=== PATIENT | female | born 1990 | race Caucasian/White ===

== ENCOUNTER 2020-08-29 08:45 | Emergency (ER) | payer BC ==
[~2020-08-29] VITALS: Ht 160 cm; Wt 72.6 kg
[2020-08-29 08:49] VITALS: BP_SYST 127
--- NOTE | 2020-08-29 08:53 | NUR ---
Patient to ER bed 8 to gown for evaluation. Side rails up. Report given to BARBIE Miranda.
--- NOTE | 2020-08-29 08:55 | NUR ---
pt. came in with c/o vaginal odor and itching, denies pain, burning or difficulty voiding. noticed first symptoms this morning, does state has had hx. of yeast infections and PH balance problems since her teenage years.
--- NOTE | 2020-08-29 09:00 | NUR ---
ER at bedside examining patient.
[2020-08-29 09:18] LABS: BILIRUBIN,URINE NEGATIVE (NEGATIVE); BLOOD, URINE NEGATIVE (NEGATIVE); COLOR,URINE YELLOW (YELLOW); GLUCOSE,URINE NEGATIVE (NEGATIVE); KETONES,URINE NEGATIVE (NEGATIVE); LEUKOCYTE ESTERASE ,URINE TRACE (NEGATIVE); NITRITE, URINE NEGATIVE (NEGATIVE); PROTEIN URINE NEGATIVE (NEGATIVE); UROBILINOGEN,URINE 0.2 (0.2-1.0)
[2020-08-29 09:24] LABS: CLARITY/URINE HAZY (CLEAR)
[2020-08-29 09:25] LABS: BACTERIA,URINE FEW /HPF (None Seen); MUCUS,URINE 1+ /LPF (None Seen); RBC,URINE NONE SEEN /HPF (0-3); WBC,URINE 0-3 /HPF (0-3)
[2020-08-29] MEDS ORDERED: METR500T PO (09:26)
[2020-08-29] MEDS ORDERED: NITR-85 PO (09:26)
--- NOTE | 2020-08-29 09:34 | NUR ---
Patient given written and verbal discharge instructions and verbalizes understanding. Dr. Elizalde discussed with patient the results and treatment provided. Patient in stable condition. ID arm band removed. Rx of Flagyl and Macroibid given. Patient educated on pain management and to follow up with PMD. Pain Scale 0/10. Opportunity for questions provided and answered. Medication side effect fact sheet provided.
[2020-08-29 09:35] VITALS: BP_SYST 127
[2020-08-30 21:06] LABS: CHLAMYDIA TRACHOMATIS NAA Negative (Negative); NEISSERIA GONORRHOEAE NAA Negative (Negative)
== END 2020-08-29 09:34 | disposition home or self-care (01) ==
LOC: SED 08:45
DX: N76.0 Acute vaginitis (principal); Z79.899 Other long term (current) drug therapy; Z88.5 Allergy status to narcotic agent
CPT/HCPCS: 81000; 87491; 87591; 99283

== ENCOUNTER 2020-11-09 16:45 | Emergency (ER) | payer BC ==
[~2020-11-09] VITALS: Ht 160 cm; Wt 72.6 kg
[2020-11-09 16:45] VITALS: BP_SYST 119
[~2020-11-09 16:45] MED LIST: METR500T PO; NITR-85 PO
[2020-11-09 18:27] LABS: BILIRUBIN,URINE NEGATIVE (NEGATIVE); BLOOD, URINE NEGATIVE (NEGATIVE); COLOR,URINE YELLOW (YELLOW); GLUCOSE,URINE NEGATIVE (NEGATIVE); KETONES,URINE NEGATIVE (NEGATIVE); LEUKOCYTE ESTERASE ,URINE NEGATIVE (NEGATIVE); NITRITE, URINE NEGATIVE (NEGATIVE); PROTEIN URINE NEGATIVE (NEGATIVE); UROBILINOGEN,URINE 0.2 (0.2-1.0)
[2020-11-09 18:28] LABS: CLARITY/URINE HAZY (CLEAR)
[2020-11-09] MEDS ORDERED: NITR-85 PO (18:29)
[2020-11-09] MEDS ORDERED: PHEN-726 PO (18:29)
[2020-11-09] MEDS ORDERED: METR500T PO (18:39)
== END 2020-11-09 18:49 | disposition home or self-care (01) ==
LOC: SED 16:45
DX: N76.0 Acute vaginitis (principal); Z88.5 Allergy status to narcotic agent; Z79.899 Other long term (current) drug therapy
CPT/HCPCS: 81003; 81025; 99283

== ENCOUNTER 2020-11-26 16:23 | Emergency (ER) | payer BC ==
[~2020-11-26] VITALS: Ht 165.1 cm; Wt 74.8 kg
[2020-11-26 16:30] VITALS: BP_SYST 126
--- NOTE | 2020-11-26 16:30 | NUR ---
Triaged and placed in waiting room
[2020-11-26 17:09] VITALS: BP_SYST 126
[2020-11-26 17:32] LABS: BILIRUBIN,URINE NEGATIVE (NEGATIVE); BLOOD, URINE NEGATIVE (NEGATIVE); COLOR,URINE YELLOW (YELLOW); GLUCOSE,URINE NEGATIVE (NEGATIVE); KETONES,URINE NEGATIVE (NEGATIVE); LEUKOCYTE ESTERASE ,URINE 1+ (NEGATIVE); NITRITE, URINE NEGATIVE (NEGATIVE); PH,URINE 7.5 (5.0-8.0); PROTEIN URINE NEGATIVE (NEGATIVE)
[2020-11-26 17:35] LABS: CLARITY/URINE HAZY (CLEAR)
[2020-11-26 18:02] LABS: BACTERIA,URINE MODERATE /HPF (None Seen); CALCIUM OXALATE CRYSTALS,UR None Seen /HPF (None Seen); CALCIUM PHOSPHATE CRYSTALS,UR None Seen /HPF (None Seen); OTHER CRYSTALS,URINE None Seen /HPF (None Seen); RBC,URINE 0-3 /HPF (0-3); TRICHOMONAS,URINE None Seen /HPF (None Seen); TRIPLE PHOSPHATE CRYSTAL,UR None Seen /HPF (None Seen); URIC ACID CRYSTALS,URINE None Seen /HPF (None Seen); URINE AMORPHOUS URATE None Seen /HPF (None Seen); YEAST,URINE None Seen /HPF (None Seen)
[2020-11-26 18:03] LABS: COARSE GRANULAR CASTS,URINE None Seen /LPF (None Seen); FINE GRANULAR CASTS,URINE None Seen /LPF (None Seen); HYALINE CASTS, URINE None Seen /LPF (None Seen); MUCUS,URINE None Seen /LPF (None Seen); OTHER CASTS, URINE None Seen /LPF (None Seen); URINE AMORPHOUS PHOSPHATES None Seen /HPF (None Seen); WAXY CASTS,URINE None Seen /LPF (None Seen)
--- NOTE | 2020-11-26 20:46 | NUR ---
Patient left without being seen.
== END 2020-11-26 20:46 | disposition left against medical advice (07) ==
LOC: SED 16:23
DX: N89.8 Other specified noninflammatory disorders of vagina (principal); Z53.21 Procedure and treatment not carried out due to patient leaving prior to being seen by health care provider
CPT/HCPCS: 81000; 87086

== ENCOUNTER 2020-12-09 08:55 | Emergency (ER) | payer BC ==
[~2020-12-09] VITALS: Ht 160 cm; Wt 72.6 kg
[2020-12-09 09:06] VITALS: BP_SYST 118
--- NOTE | 2020-12-09 09:08 | NUR ---
Patient to ER bed 3 to gown for evaluation. Side rails up. Report given to CHET VALENTIN.
--- NOTE | 2020-12-09 09:15 | NUR ---
pt arrives w/ pelvic pain x 2 days, "pt states that she feels as if a piece of vaginal skin and her vagina is going to fall off".
--- NOTE | 2020-12-09 09:20 | NUR ---
ER at bedside examining patient.
[2020-12-09] MEDS ORDERED: metroNIDAZOLE 500 MG TABLET PO ONE (09:30)
[2020-12-09 09:51] LABS: BASOPHILS % (AUTO) 0.3 % (0.0-2.0); EOSINOPHILS # (AUTO) 0.1 K/uL (0.0-0.4); EOSINOPHILS % (AUTO) 1.1 % (0.0-4.0); HEMATOCRIT 35.9 % (36-48); HEMOGLOBIN 12.2 g/dL (12.0-16.0); LYMPHOCYTES # (AUTO) 1.4 K/uL (1.0-5.5); LYMPHOCYTES % (AUTO) 24.5 % (20.5-51.5); MEAN CORPUSCULAR HEMOGLOBIN 27 pg (27-31); MEAN CORPUSCULAR HGB CONC 34 % (32-36); MEAN CORPUSCULAR VOLUME 80 fL (79.0-98.0); MONOCYTES # (AUTO) 0.5 K/uL (0.0-1.0); MONOCYTES % (AUTO) 8.3 % (1.7-9.3); NEUTROPHILS # (AUTO) 3.8 K/uL (1.8-7.7); NEUTROPHILS % (AUTO) 65.8 % (40.0-70.0); PLATELET COUNT (AUTO) 362 K/uL (130-430); RED BLOOD CELL COUNT(AUTO) 4.47 MIL/uL (4.2-6.2); RED CELL DISTRIBUTION WIDTH 14.8 % (9.0-15.0); WHITE BLOOD COUNT (AUTO) 5.8 K/uL (4.8-10.8)
[2020-12-09 10:15] LABS: BILIRUBIN,URINE NEGATIVE (NEGATIVE); BLOOD, URINE 3+ (NEGATIVE); CLARITY/URINE TURBID (CLEAR); COLOR,URINE YELLOW (YELLOW); GLUCOSE,URINE NEGATIVE (NEGATIVE); KETONES,URINE NEGATIVE (NEGATIVE); LEUKOCYTE ESTERASE ,URINE 3+ (NEGATIVE); NITRITE, URINE NEGATIVE (NEGATIVE); PROTEIN URINE NEGATIVE (NEGATIVE); UROBILINOGEN,URINE 0.2 (0.2-1.0)
[2020-12-09 10:38] LABS: BACTERIA,URINE MODERATE /HPF (None Seen); WBC,URINE 20-50 /HPF (0-3)
--- NOTE | 2020-12-09 11:00 | NUR ---
Patient transported to radiology via WC, accompanied by US tech.
[2020-12-09 11:02] LABS: ERYTHROCYTE SEDIMENTATION RATE 14 MM/HR (0-20)
[2020-12-09] MEDS ORDERED: METR500T PO (11:48)
[2020-12-09] MEDS ORDERED: SULF1TAB48 PO (11:48)
[2020-12-09 11:59] VITALS: BP_SYST 118
--- NOTE | 2020-12-09 12:00 | NUR ---
Patient given written and verbal discharge instructions and verbalizes understanding. ER MD discussed with patient the results and treatment provided. Patient in stable condition. ID arm band removed. Rx of Flagyl given. Patient educated on pain management and to follow up with PMD. Pain Scale 3/10. Opportunity for questions provided and answered. Medication side effect fact sheet provided.
== END 2020-12-09 11:59 | disposition home or self-care (01) ==
LOC: SED 08:55
DX: N39.0 Urinary tract infection, site not specified (principal); R10.2 Pelvic and perineal pain; Z88.5 Allergy status to narcotic agent; Z79.899 Other long term (current) drug therapy
CPT/HCPCS: 36415; 76856-TC; 81000; 85025; 85651-TC; 86140; 87086; 99284

== ENCOUNTER 2021-02-06 23:11 | Emergency (ER) | payer BC ==
[~2021-02-06] VITALS: Ht 160 cm; Wt 73.9 kg
[~2021-02-06 23:11] MED LIST changes: +SULF1TAB48 PO
[2021-02-06 23:57] VITALS: BP_SYST 121
--- NOTE | 2021-02-07 | NUR ---
Patient triaged and placed in waiting room. VSS and patient appears in no acute distress at this time. Accompanied by SELF, awaiting available bed, and MD notified of need for MSE.
[2021-02-07 00:22] LABS: BILIRUBIN,URINE NEGATIVE (NEGATIVE); CLARITY/URINE CLOUDY (CLEAR); COLOR,URINE YELLOW (YELLOW); GLUCOSE,URINE NEGATIVE (NEGATIVE); KETONES,URINE TRACE (NEGATIVE); LEUKOCYTE ESTERASE ,URINE 1+ (NEGATIVE); NITRITE, URINE NEGATIVE (NEGATIVE); PROTEIN URINE NEGATIVE (NEGATIVE); UROBILINOGEN,URINE 0.2 (0.2-1.0)
[2021-02-07 00:23] LABS: BLOOD, URINE TRACE (NEGATIVE)
[2021-02-07 00:40] LABS: BACTERIA,URINE MODERATE /HPF (None Seen); WBC,URINE 20-50 /HPF (0-3)
--- NOTE | 2021-02-07 01:12 | NUR ---
Patient ambulatory to bed hallway for evaluation
--- NOTE | 2021-02-07 01:15 | NUR ---
DR. CRAWFORD AT [facility] TO EVALUATE PATIENT.
[2021-02-07] MEDS ORDERED: PHENAZOPYRIDINE HCL 100 MG TABLET PO ONE (01:45)
[2021-02-07] MEDS ORDERED: NITROFURANTOIN MONOHYD/M-CRYST 100 MG CAPSULE (MacroBID) PO ONE (01:45)
[2021-02-07] MEDS ORDERED: NITR-85 PO (01:47)
[2021-02-07] MEDS ORDERED: PHEN-890 PO (01:47)
[2021-02-07 02:04] VITALS: BP_SYST 121
--- NOTE | 2021-02-07 02:04 | NUR ---
Patient given written and verbal discharge instructions and verbalizes understanding. DR.PEEK SHERRY SALAS discussed with patient the results and treatment provided. Patient in stable condition. ID arm band removed. Rx of MACROBID, PYRIDIUM given. Patient educated on pain management and to follow up with PMD. Pain Scale 0/10. Opportunity for questions provided and answered. Medication side effect fact sheet provided.
== END 2021-02-07 02:04 | disposition home or self-care (01) ==
LOC: SED 23:11
DX: N39.0 Urinary tract infection, site not specified (principal)
CPT/HCPCS: 81000; 81025; 87086; 99283

== ENCOUNTER 2021-07-24 17:03 | Emergency (ER) | payer BC ==
[~2021-07-24] VITALS: Ht 160 cm; Wt 74.4 kg
[~2021-07-24 17:03] MED LIST changes: +PHEN-890 PO
[2021-07-24 17:20] VITALS: BP_SYST 133
[2021-07-24] MEDS ORDERED: NITR-85 PO (17:22)
[2021-07-24] MEDS ORDERED: GYNECR VG (17:22)
[2021-07-24 17:38] VITALS: BP_SYST 128
== END 2021-07-24 17:38 | disposition home or self-care (01) ==
LOC: SED 17:03
DX: N39.0 Urinary tract infection, site not specified (principal); Z88.5 Allergy status to narcotic agent; Z79.899 Other long term (current) drug therapy
CPT/HCPCS: 99283

== ENCOUNTER 2021-09-04 17:36 | Emergency (ER) | payer BC ==
[~2021-09-04] VITALS: Ht 160 cm; Wt 74.4 kg
[~2021-09-04 17:36] MED LIST changes: +GYNECR VG
[2021-09-04 17:57] VITALS: BP_SYST 119
[2021-09-04] MEDS ORDERED: KETOROLAC TROMETHAMINE 60 MG/2 ML VIAL IM ONE (19:00)
[2021-09-04 19:16] LABS: BASOPHILS % (AUTO) 0.4 % (0.0-2.0); EOSINOPHILS # (AUTO) 0.1 K/uL (0.0-0.4); HEMATOCRIT 35.2 % (36-48); HEMOGLOBIN 11.6 g/dL (12.0-16.0); LYMPHOCYTES # (AUTO) 2.6 K/uL (1.0-5.5); LYMPHOCYTES % (AUTO) 33.1 % (20.5-51.5); MEAN CORPUSCULAR HEMOGLOBIN 27 pg (27-31); MEAN CORPUSCULAR HGB CONC 33 % (32-36); MEAN CORPUSCULAR VOLUME 81 fL (79.0-98.0); MONOCYTES # (AUTO) 1.1 K/uL (0.0-1.0); MONOCYTES % (AUTO) 14.4 % (1.7-9.3); NEUTROPHILS % (AUTO) 51.1 % (40.0-70.0); PLATELET COUNT (AUTO) 398 K/uL (130-430); RED BLOOD CELL COUNT(AUTO) 4.34 MIL/uL (4.2-6.2); RED CELL DISTRIBUTION WIDTH 15.8 % (9.0-15.0); WHITE BLOOD COUNT (AUTO) 7.9 K/uL (4.8-10.8)
[2021-09-04 19:47] LABS: CALCIUM 8.1 mg/dL (8.4-11.0); CREATININE 0.78 mg/dL (0.55-1.30); POTASSIUM 4.7 mmol/L (3.5-5.1)
[2021-09-04 19:51] LABS: C-REACTIVE PROTEIN QUANT 0.2 mg/dL (0-0.5)
[2021-09-04 20:21] LABS: TOTAL BILIRUBIN 0.2 mg/dL (0.0-1.0)
[2021-09-04] MEDS ORDERED: IBUP-1969 PO (20:47)
[2021-09-04] MEDS ORDERED: HYDR-3917 PO (20:47)
[2021-09-04 21:29] VITALS: BP_SYST 119
== END 2021-09-04 21:00 | disposition home or self-care (01) ==
LOC: SED 17:36
DX: K80.20 Calculus of gallbladder without cholecystitis without obstruction (principal); K80.50 Calculus of bile duct without cholangitis or cholecystitis without obstruction; Z88.5 Allergy status to narcotic agent; Z79.899 Other long term (current) drug therapy
CPT/HCPCS: 36415; 74176; 76376; 80053; 81025; 82150; 83690; 84703; 85025; 86140; 99284; J1885

== ENCOUNTER 2021-09-06 11:27 | Emergency (ER) | payer BC ==
[~2021-09-06] VITALS: Ht 160 cm; Wt 74.4 kg
[~2021-09-06 11:27] MED LIST changes: +HYDR-3917 PO; +IBUP-1969 PO
[2021-09-06 11:43] VITALS: BP_SYST 124
[2021-09-06] MEDS ORDERED: ONDANSETRON HCL 4 MG/2 ML VIAL IVP ONE (12:00)
[2021-09-06] MEDS ORDERED: NACL 0.9% 1,000 ML IV ONE (12:00)
[2021-09-06 12:14] LABS: BILIRUBIN,URINE NEGATIVE (NEGATIVE); BLOOD, URINE NEGATIVE (NEGATIVE); CLARITY/URINE CLEAR (CLEAR); COLOR,URINE YELLOW (YELLOW); GLUCOSE,URINE NEGATIVE (NEGATIVE); KETONES,URINE NEGATIVE (NEGATIVE); LEUKOCYTE ESTERASE ,URINE NEGATIVE (NEGATIVE); NITRITE, URINE NEGATIVE (NEGATIVE); PH,URINE 6.5 (5.0-8.0); PROTEIN URINE NEGATIVE (NEGATIVE); UROBILINOGEN,URINE 0.2 (0.2-1.0)
[2021-09-06 12:17] LABS: BASOPHILS % (AUTO) 0.3 % (0.0-2.0); EOSINOPHILS # (AUTO) 0.1 K/uL (0.0-0.4); EOSINOPHILS % (AUTO) 1.2 % (0.0-4.0); HEMATOCRIT 34.3 % (36-48); HEMOGLOBIN 11.5 g/dL (12.0-16.0); LYMPHOCYTES # (AUTO) 1.8 K/uL (1.0-5.5); LYMPHOCYTES % (AUTO) 32.4 % (20.5-51.5); MEAN CORPUSCULAR HEMOGLOBIN 27 pg (27-31); MEAN CORPUSCULAR HGB CONC 34 % (32-36); MEAN CORPUSCULAR VOLUME 81 fL (79.0-98.0); MONOCYTES # (AUTO) 0.7 K/uL (0.0-1.0); NEUTROPHILS # (AUTO) 2.9 K/uL (1.8-7.7); NEUTROPHILS % (AUTO) 53.1 % (40.0-70.0); PLATELET COUNT (AUTO) 394 K/uL (130-430); RED BLOOD CELL COUNT(AUTO) 4.26 MIL/uL (4.2-6.2); RED CELL DISTRIBUTION WIDTH 15.6 % (9.0-15.0); WHITE BLOOD COUNT (AUTO) 5.5 K/uL (4.8-10.8)
[2021-09-06 12:20] LABS: CALCIUM 7.9 mg/dL (8.4-11.0); CREATININE 0.77 mg/dL (0.55-1.30); POTASSIUM 4.6 mmol/L (3.5-5.1)
[2021-09-06 12:26] LABS: ALBUMIN 2.9 g/dL (3.4-4.8); TOTAL BILIRUBIN 0.3 mg/dL (0.0-1.0)
[2021-09-06] MEDS ORDERED: MORPHINE 4 MG INJ. 4 MG/ML VIAL IVP ONE (15:00)
[2021-09-06] MEDS ORDERED: ONDANSETRON HCL 4 MG/2 ML VIAL ONE (15:13)
[2021-09-06] MEDS: MORPHINE 4 MG INJ. 4 MG/ML VIAL IVP PRN ×2 (16:33→18:33)
[2021-09-06] MEDS ORDERED: KETOROLAC TROMETHAMINE 30 MG VIAL IVP ONE (17:45)
[2021-09-06 21:10] VITALS: BP_SYST 126
== END 2021-09-06 21:07 | disposition short-term general hospital (02) ==
LOC: SED 11:27
DX: K80.20 Calculus of gallbladder without cholecystitis without obstruction (principal); Z88.5 Allergy status to narcotic agent; Z20.822 Contact with and (suspected) exposure to COVID-19
CPT/HCPCS: 36415; 76700; 80053; 81003; 81025; 83690; 85025; 86886; 86900; 86901; 87426; 96361; 96374; 96375; 96376; 99285; J1885; J2270; J2405; J7030

== ENCOUNTER 2022-06-08 23:23 | Emergency (ER) | payer BC ==
[~2022-06-08] VITALS: Ht 160 cm; Wt 77.1 kg
[2022-06-09 00:23] VITALS: BP_SYST 144
--- NOTE | 2022-06-09 00:25 | NUR ---
DR. STEARNS WITH PATIENT IN TRIAGE FOR MSE.
--- NOTE | 2022-06-09 00:29 | NUR ---
Patient triaged and placed in waiting room. VSS and patient appears in no acute distress at this time. Accompanied by SELF, awaiting available bed, and MD notified of need for MSE.
--- NOTE | 2022-06-09 00:30 | NUR ---
PT FROM HOME WITH C/O VAGINAL FOUL ODOR, ITCHING AND YELLOW DISCHARGE X 3DAYS. PT DENIES ANY PAIN AND DISCOMFORT. VSS.
[2022-06-09 00:46] LABS: BILIRUBIN,URINE NEGATIVE (NEGATIVE); BLOOD, URINE NEGATIVE (NEGATIVE); CLARITY/URINE SL CLOUDY (CLEAR); COLOR,URINE YELLOW (YELLOW); GLUCOSE,URINE NEGATIVE (NEGATIVE); KETONES,URINE NEGATIVE (NEGATIVE); LEUKOCYTE ESTERASE ,URINE 2+ (NEGATIVE); NITRITE, URINE NEGATIVE (NEGATIVE); PH,URINE 7.5 (5.0-8.0); PROTEIN URINE NEGATIVE (NEGATIVE)
[2022-06-09 01:01] LABS: BACTERIA,URINE MANY /HPF (None Seen)
[2022-06-09 01:03] LABS: MUCUS,URINE None Seen /LPF (None Seen)
[2022-06-09] MEDS ORDERED: CEPH-548 PO (01:28)
[2022-06-09] MEDS ORDERED: GYNECR VG (01:28)
[2022-06-09 01:48] VITALS: BP_SYST 144
--- NOTE | 2022-06-09 01:48 | NUR ---
Patient given written and verbal discharge instructions and verbalizes understanding. ER DR. STEARNS discussed with patient the results and treatment provided. Patient in stable condition. ID arm band removed. Rx of CEPHALEXIN AND CLOTRIMAZOLE given. Patient educated on pain management and to follow up with PMD. Pain Scale 0. Opportunity for questions provided and answered. Medication side effect fact sheet provided.
== END 2022-06-09 01:48 | disposition home or self-care (01) ==
LOC: SED 23:23
DX: N39.0 Urinary tract infection, site not specified (principal); R30.0 Dysuria; Z88.5 Allergy status to narcotic agent; Z79.899 Other long term (current) drug therapy
CPT/HCPCS: 36415; 81000; 81025; 87086; 87491; 99283

== ENCOUNTER 2022-10-07 19:09 | Emergency (ER) | payer BC ==
[~2022-10-07] VITALS: Ht 160 cm; Wt 73.5 kg
[~2022-10-07 19:09] MED LIST changes: +CEPH-548 PO
[2022-10-07 19:40] VITALS: BP_SYST 133
--- NOTE | 2022-10-07 19:40 | NUR ---
Triaged and placed patient back to the waiting room. No acute respiratory distress at this time. VSS. Informed patient to notify ED staff for any changes in condition or worsening of symptoms while waiting to be seen by a provider. Patient verbalized understanding.
[2022-10-07 20:05] LABS: BILIRUBIN,URINE NEGATIVE (NEGATIVE); COLOR,URINE YELLOW (YELLOW); GLUCOSE,URINE NEGATIVE (NEGATIVE); KETONES,URINE NEGATIVE (NEGATIVE); NITRITE, URINE NEGATIVE (NEGATIVE); PH,URINE 6.5 (5.0-8.0); PROTEIN URINE NEGATIVE (NEGATIVE); UROBILINOGEN,URINE 0.2 (0.2-1.0)
[2022-10-07 20:13] LABS: BLOOD, URINE TRACE (NEGATIVE); CLARITY/URINE HAZY (CLEAR); LEUKOCYTE ESTERASE ,URINE 2+ (NEGATIVE)
[2022-10-07 20:14] LABS: BACTERIA,URINE FEW /HPF (None Seen); RBC,URINE 0-3 /HPF (0-3); WBC,URINE 20-50 /HPF (0-3)
[2022-10-07 20:15] LABS: MUCUS,URINE 1+ /LPF (None Seen)
--- NOTE | 2022-10-07 21:14 | NUR ---
Patient placed in ER CHAIR 2 for evaluation. Instructed to notify ED staff for any changes in condition or worsening of symptoms. Patient verbalized understanding.
[2022-10-07] MEDS ORDERED: PHEN-726 PO (21:26)
[2022-10-07] MEDS ORDERED: CEPH-548 PO (21:26)
--- NOTE | 2022-10-07 21:26 | NUR ---
Dr. APARICIO at bedside examining the patient.
[2022-10-07] MEDS ORDERED: KETOROLAC TROMETHAMINE 15 MG VIAL IM ONE (21:30)
[2022-10-07 21:35] VITALS: BP_SYST 132
--- NOTE | 2022-10-07 21:35 | NUR ---
Patient given written and verbal discharge instructions and verbalizes understanding. ER MD discussed with patient the results and treatment provided. Patient in stable condition. ID arm band removed. Rx of CEPHALEXIN AND PYRIDIUM given. Patient educated on pain management and to follow up with PMD. Pain Scale 0/10. Opportunity for questions provided and answered. Medication side effect fact sheet provided.
== END 2022-10-07 21:35 | disposition home or self-care (01) ==
LOC: SED 19:09
DX: N39.0 Urinary tract infection, site not specified (principal); R30.0 Dysuria; R39.15 Urgency of urination; R35.0 Frequency of micturition; Z88.5 Allergy status to narcotic agent; Z79.899 Other long term (current) drug therapy
CPT/HCPCS: 99283; 81000; 87086; 81025; 96372; J1885

== ENCOUNTER 2023-04-02 08:50 | Emergency (ER) | payer BC, OTHER ==
[~2023-04-02] VITALS: Ht 160 cm; Wt 79.8 kg
[~2023-04-02 08:50] MED LIST changes: +PHEN-726 PO
[2023-04-02 08:55] VITALS: BP_SYST 131; PULSE 78; RESP 18; O2SAT 98
[2023-04-02 09:33] LABS: BILIRUBIN,URINE NEGATIVE (NEGATIVE); BLOOD, URINE NEGATIVE (NEGATIVE); COLOR,URINE YELLOW (YELLOW); GLUCOSE,URINE NEGATIVE (NEGATIVE); KETONES,URINE NEGATIVE (NEGATIVE); LEUKOCYTE ESTERASE ,URINE NEGATIVE (NEGATIVE); NITRITE, URINE NEGATIVE (NEGATIVE); PROTEIN URINE NEGATIVE (NEGATIVE); UROBILINOGEN,URINE 0.2 (0.2-1.0)
[2023-04-02 09:35] LABS: CLARITY/URINE SLIGHTLY HAZY (CLEAR)
[2023-04-02] MEDS: KETOROLAC TROMETHAMINE 60 MG/2 ML VIAL IM ONE (09:49)
[2023-04-02 11:45] LABS: BASOPHILS % (AUTO) 0.3 % (0.0-2.0); EOSINOPHILS # (AUTO) 0.1 K/uL (0.0-0.4); EOSINOPHILS % (AUTO) 0.6 % (0.0-4.0); HEMATOCRIT 36.3 % (36-48); HEMOGLOBIN 11.8 g/dL (12.0-16.0); LYMPHOCYTES # (AUTO) 2.1 K/uL (1.0-5.5); LYMPHOCYTES % (AUTO) 24.3 % (20.5-51.5); MEAN CORPUSCULAR HEMOGLOBIN 27 pg (27-31); MEAN CORPUSCULAR HGB CONC 33 % (32-36); MEAN CORPUSCULAR VOLUME 84 fL (79.0-98.0); MONOCYTES # (AUTO) 0.7 K/uL (0.0-1.0); MONOCYTES % (AUTO) 7.5 % (1.7-9.3); NEUTROPHILS # (AUTO) 5.9 K/uL (1.8-7.7); NEUTROPHILS % (AUTO) 67.3 % (40.0-70.0); PLATELET COUNT (AUTO) 319 K/uL (130-430); RED BLOOD CELL COUNT(AUTO) 4.35 MIL/uL (4.2-6.2); WHITE BLOOD COUNT (AUTO) 8.7 K/uL (4.8-10.8)
[2023-04-02] MEDS: HYDROcodone/ACETAMIN 7.5-325 MG TAB PO ONE (11:46)
[2023-04-02 11:49] LABS: ERYTHROCYTE SEDIMENTATION RATE 7 MM/HR (0-20)
[2023-04-02 11:59] LABS: CALCIUM 9.1 mg/dL (8.4-11.0); CREATININE 0.72 mg/dL (0.55-1.30); POTASSIUM 4.4 mmol/L (3.5-5.1)
[2023-04-02] MEDS ORDERED: IBUP-1969 PO (12:15)
[2023-04-02] MEDS ORDERED: TRAM50TA2 PO (12:15)
[2023-04-02 12:27] VITALS: BP_SYST 127; PULSE 85; RESP 15; TEMP 98.3; O2SAT 100
== END 2023-04-02 12:24 | disposition home or self-care (01) ==
LOC: SED 08:50
DX: M54.50 Low back pain, unspecified (principal); Z88.8 Allergy status to other drugs, medicaments and biological substances; Z79.899 Other long term (current) drug therapy
CPT/HCPCS: 99284; 80048; 81001; 85025; 85651; 36415; 72100; 81025; 96372; 81003; J1885

== ENCOUNTER 2023-07-29 13:09 | Emergency (ER) | payer BC, OTHER ==
[~2023-07-29] VITALS: Ht 160 cm; Wt 76.2 kg
[~2023-07-29 13:09] MED LIST changes: +TRAM50TA2 PO
[2023-07-29 13:24] VITALS: BP_SYST 144; PULSE 79; RESP 16; TEMP 98.1; O2SAT 98
[2023-07-29 16:12] LABS: BILIRUBIN,URINE NEGATIVE (NEGATIVE); BLOOD, URINE NEGATIVE (NEGATIVE); CLARITY/URINE CLEAR (CLEAR); COLOR,URINE YELLOW (YELLOW); GLUCOSE,URINE NEGATIVE (NEGATIVE); KETONES,URINE NEGATIVE (NEGATIVE); LEUKOCYTE ESTERASE ,URINE NEGATIVE (NEGATIVE); NITRITE, URINE NEGATIVE (NEGATIVE); PH,URINE 6.5 (5.0-8.0); PROTEIN URINE NEGATIVE (NEGATIVE); UROBILINOGEN,URINE 0.2 (0.2-1.0)
[2023-07-29] MEDS ORDERED: LIDOCAINE 1%, 20 ML MDV 20 ML ONE (16:18)
[2023-07-29] MEDS: cefTRIAXone 250 MG VIAL IM ONE (16:26)
[2023-07-29] MEDS: AZITHROMYCIN 250 MG TABLET PO ONE (16:27)
[2023-07-29] MEDS: cefTRIAXone 500 MG in LIDOCAINE 1%, 20 ML MDV 1 ML IM ONE (16:27)
[2023-07-29 16:33] VITALS: BP_SYST 144; PULSE 79; RESP 16; TEMP 98.1; O2SAT 98
== END 2023-07-29 16:34 | disposition home or self-care (01) ==
LOC: SED 13:09
DX: N76.0 Acute vaginitis (principal); Z88.5 Allergy status to narcotic agent; Z79.899 Other long term (current) drug therapy
CPT/HCPCS: 99284; 81001; 87210; 36415; 81025; 96372; 87491; 81003; J0696; Q0144; J2001